=== PATIENT | male | born 1965 | race Caucasian/White ===

== ENCOUNTER 2021-02-18 23:53 | Inpatient (IN) | payer MEDICAID ==
[~2021-02-18] VITALS: Ht 167.6 cm; Wt 85.7 kg
[2021-02-19] MEDS ORDERED: ASPIRIN 81 MG TABLET CHEW PO ONE
--- NOTE | 2021-02-19 00:08 | NUR ---
VENECIA FROM [facility] FOR CHEST PAIN THAT DOES NOT RADIATE. PT C/O OF PRESSURE, TIGHTNESS, NAUSEA, SWEATING THAT STARTED AT 2000 TONIGHT. PT APPEARS TO HAVE CELLULITIS IN LEFT LEG, APPEARS RED AND SWOLLEN. PT DOES NOT APPEAR SWEATING OR IN ANY DISTRESS AT MOMENT. EKG AND TROP AND BANNER CAME OUT NEGATIVE ACCORDING TO EMS. PT GIVEN 324 ASA, 2 NITRO, 250 ML NS, AND VANCO TRAVEL WRITER ATTACHED TO CARD/SP02/BP MONITORS. VSS. NADN. BED IN LOW POSITION, RAILS ENGAGED, CALL LIGHT WITHIN REACH. [facility]CT[facility] PT LIVES IN [place].
[2021-02-19] MEDS ORDERED: FUROSEMIDE 40 MG/4 ML ONE (00:21)
[2021-02-19] MEDS ORDERED: CEFTRIAXONE 1,000 MG in DEXTROSE 5% 50 ML IVPB ONE (00:30)
[2021-02-19] MEDS ORDERED: ALBUTEROL SULFATE (00:35)
[2021-02-19] MEDS ORDERED: ROSU20TA29 PO (00:35)
[2021-02-19] MEDS ORDERED: ASPI-963 PO (00:35)
[2021-02-19] MEDS ORDERED: FURO20TA3 PO (00:35)
[2021-02-19] MEDS ORDERED: SPIR25TA5 PO (00:35)
[2021-02-19] MEDS ORDERED: LISI-170 PO (00:35)
[2021-02-19] MEDS ORDERED: METF500T17 PO (00:35)
--- NOTE | 2021-02-19 00:39 | NUR ---
TOLD DR MASON THAT TROPONIN WAS 1.150 VIA PHONE
[2021-02-19] MEDS ORDERED: BISACODYL 10 MG SUPP PR PRN (01:00)
[2021-02-19] MEDS ORDERED: ONDANSETRON ODT 4 MG PO PRN (01:00)
[2021-02-19] MEDS ORDERED: PROMETHAZINE 25 MG/ML, 1ML IM PRN (01:00)
[2021-02-19] MEDS ORDERED: POLYETHYLENE GLYCOL 17 GM PACKET PO PRN (01:00)
[2021-02-19] MEDS ORDERED: ALBUTEROL/IPRATROPIUM 2.5MG/0.5MG, 3 ML NPPB SCH (01:00)
[2021-02-19] MEDS ORDERED: morphine SULFATE 10 MG/ML, 1ML IVPush PRN (01:00)
[2021-02-19] MEDS ORDERED: hydrALAzine 20 MG/ML, 1ML IVPush PRN (01:00)
[2021-02-19] MEDS ORDERED: DOCUSATE 100 MG CAPSULE PO PRN (01:00)
[2021-02-19] MEDS ORDERED: OXYcodone IR 5MG TABLET PO PRN (01:00)
[2021-02-19] MEDS ORDERED: ONDANSETRON 2MG/ML, 2ML IVPush PRN (01:00)
[2021-02-19] MEDS ORDERED: ENOXAPARIN 40 MG/0.4 ML SQ SCH (01:00)
[2021-02-19 01:04] VITALS: BP 166/89
[2021-02-19] MEDS ORDERED: PHARMACOKINETIC MONITORING MC PRN (01:30)
[2021-02-19] MEDS: ERTAPENEM 1 GM in SODIUM CHLORIDE 0.9% 50 ML IV SCH (01:44)
[2021-02-19] MEDS ORDERED: HEPARIN 5,000 UNITS/ML, 1ML IV ONE (02:00)
[2021-02-19] MEDS ORDERED: HEPARIN 5,000 UNITS/ML, 1ML IV PRN (02:00)
[2021-02-19] MEDS: HEPARIN 25,000 UNITS/250ML PMX 250 ML IV PRN (03:17)
[2021-02-19] MEDS: methylPREDNISolone SOD SUCC 125 MG/2 ML IVPush SCH ×4 (03:20→20:51)
[2021-02-19] MEDS: CARVEDILOL 6.25 MG TABLET PO SCH ×2 (06:10→18:17)
[2021-02-19] MEDS: ASPIRIN 81 MG TABLET EC PO SCH (06:10)
[2021-02-19] MEDS: ALBUTEROL/IPRATROPIUM 2.5MG/0.5MG, 3 ML NPPB SCH ×3 (06:46→20:36)
[2021-02-19 07:51] VITALS: BP 103/84
[2021-02-19] MEDS: INSULIN LISPRO 100 UNITS/ML, PEN SQ-INSULIN SCH ×4 (08:31→21:44)
[2021-02-19] MEDS: LISINOPRIL 20 MG TABLET PO SCH (08:44)
[2021-02-19 08:46] LABS: CREATININE 1.23 mg/dL (0.7-1.3)
[2021-02-19] MEDS ORDERED: FUROSEMIDE 40 MG TABLET PO SCH (09:00)
[2021-02-19 10:36] VITALS: BP 93/67
[2021-02-19] MEDS: VANCOMYCIN 1,600 MG in SODIUM CHLORIDE 0.9% 250 ML IV SCH ×2 (10:57→23:14)
[2021-02-19 14:30] VITALS: BP 113/56
[2021-02-19] MEDS ORDERED: FUROSEMIDE 40 MG/4 ML IV ONE ×2 (15:00)
[2021-02-19] MEDS ORDERED: methylPREDNISolone SOD SUCC 125 MG/2 ML IVPush ONE (15:30)
[2021-02-19] MEDS ORDERED: DIPHENHYDRAMINE 50 MG/ML, 1ML IVPush ONE (15:30)
[2021-02-19] MEDS ORDERED: OMNIPAQUE 350 MG/ML, 100ML BOTTLE ONE (16:14)
[2021-02-19] MEDS ORDERED: NITR0.4T28 SL (18:14)
[2021-02-19 19:17] VITALS: BP 117/60
[2021-02-19] MEDS: ATORVASTATIN 20 MG TABLET PO SCH (20:51)
[2021-02-20] MEDS: ERTAPENEM 1 GM in SODIUM CHLORIDE 0.9% 50 ML IV SCH (01:35)
[2021-02-20 01:57] VITALS: BP 103/74
[2021-02-20] MEDS: ALBUTEROL/IPRATROPIUM 2.5MG/0.5MG, 3 ML NPPB SCH ×4 (03:12→19:29)
[2021-02-20] MEDS: methylPREDNISolone SOD SUCC 125 MG/2 ML IVPush SCH ×2 (03:27→07:57)
[2021-02-20 05:14] LABS: BASOPHILS % (AUTO) 0 % (0-1); EOSINOPHILS % (AUTO) 0 % (1-7); LYMPHOCYTES % (AUTO) 5 % (22-44); MEAN CORPUSCULAR HEMOGLOBIN 32.6 pg (27.5-34.5); MEAN CORPUSCULAR HGB CONC 34.1 g/dL (33.2-36.2); MEAN PLATELET VOLUME 9.6 fL (7.4-10.4); MONOCYTES % (AUTO) 7 % (2-9); NEUTROPHILS % (AUTO) 88 % (42-75); PLATELET COUNT 178 x10^3/uL (130-400); RED BLOOD COUNT 5.12 x10^6/uL (4.38-5.82); RED CELL DISTRIBUTION WIDTH 16.7 % (9.4-14.8)
[2021-02-20 05:22] LABS: ANION GAP 10 mmol/L (5-15); CALCIUM 8.9 mg/dL (8.5-10.1); CHLORIDE 98 mmol/L (98-107)
[2021-02-20 05:30] LABS: ALANINE AMINOTRANSFERASE 56 U/L (12-78); ALKALINE PHOSPHATASE 128 U/L (45-117); BILIRUBIN,TOTAL 1.5 mg/dL (0.2-1.0); CHOL/HDL RATIO 1.9; CHOLESTEROL, TOTAL 81 mg/dL (140-239); CREATININE 1.63 mg/dL (0.7-1.3); HDL CHOL % 53 % (26-37); HDL CHOLESTEROL (DIRECT) 43 mg/dL (40-60); LDL CHOLESTEROL,CALCULATED 28 mg/dL (54-169); TOTAL PROTEIN 7.2 g/dL (6.4-8.2); TRIGLYCERIDES 52 mg/dL (50-200); VLDL CHOLESTEROL 10 mg/dL (0-25)
[2021-02-20 05:31] LABS: LDL/HDL RATIO 0.7 (0.5-3.0)
[2021-02-20 06:10] VITALS: BP 105/78
[2021-02-20] MEDS: ASPIRIN 81 MG TABLET EC PO SCH (06:11)
[2021-02-20] MEDS: CARVEDILOL 6.25 MG TABLET PO SCH ×2 (06:11→17:22)
[2021-02-20 06:28] VITALS: BP 102/73
[2021-02-20] MEDS: INSULIN LISPRO 100 UNITS/ML, PEN SQ-INSULIN SCH ×4 (07:00→20:21)
[2021-02-20] MEDS: FUROSEMIDE 40 MG/4 ML IV SCH (07:57)
[2021-02-20] MEDS: LISINOPRIL 20 MG TABLET PO SCH (07:57)
[2021-02-20] MEDS: HEPARIN 25,000 UNITS/250ML PMX 250 ML IV PRN (08:09)
[2021-02-20] MEDS ORDERED: VANCOMYCIN PER PHARMACY MC PRN (09:00)
[2021-02-20] MEDS: VANCOMYCIN 1,600 MG in SODIUM CHLORIDE 0.9% 250 ML IV SCH (10:36)
[2021-02-20] MEDS: CEFTRIAXONE 2 GM in DEXTROSE 5% 50 ML IVPB SCH (11:57)
[2021-02-20 12:09] VITALS: BP 95/70
[2021-02-20 15:33] LABS: CREATININE 1.86 mg/dL (0.7-1.3)
[2021-02-20 15:34] LABS: VANCOMYCIN,RANDOM 32.2 mcg/mL
[2021-02-20] MEDS: LINEZOLID PMX 600MG/300ML 300 ML IV SCH (20:05)
[2021-02-20 20:10] VITALS: BP 125/82
[2021-02-20] MEDS: ATORVASTATIN 20 MG TABLET PO SCH (20:21)
[2021-02-21 01:08] VITALS: BP 95/72
[2021-02-21] MEDS: ASPIRIN 81 MG TABLET EC PO SCH (05:32)
[2021-02-21 06:35] VITALS: BP 90/72
[2021-02-21] MEDS: ALBUTEROL/IPRATROPIUM 2.5MG/0.5MG, 3 ML NPPB SCH ×3 (07:00→21:00)
[2021-02-21 08:00] LABS: MEAN CORPUSCULAR HEMOGLOBIN 31.9 pg (27.5-34.5); MEAN CORPUSCULAR HGB CONC 32.8 g/dL (33.2-36.2); MEAN PLATELET VOLUME 9.5 fL (7.4-10.4); PLATELET COUNT 189 x10^3/uL (130-400); RED BLOOD COUNT 4.79 x10^6/uL (4.38-5.82); RED CELL DISTRIBUTION WIDTH 16.1 % (9.4-14.8)
[2021-02-21 08:06] LABS: ALANINE AMINOTRANSFERASE 50 U/L (12-78); ANION GAP 7 mmol/L (5-15); CHLORIDE 93 mmol/L (98-107); CREATININE 1.81 mg/dL (0.7-1.3)
[2021-02-21 08:08] LABS: ALKALINE PHOSPHATASE 117 U/L (45-117); TOTAL PROTEIN 6.9 g/dL (6.4-8.2)
[2021-02-21 08:31] LABS: <PLATELET ESTIMATE> DECREASED; <PLT MORPHOLOGY> NORMAL PLT MORPH; <RBC MORPHOLOGY> NORMAL; BAND#(MANUAL) 0.56 x10^3/uL; BANDS%(MANUAL) 5 % (0-7); LYMPH#(MANUAL) 0.34 x10^3/uL (1-3.4); LYMPHS% (MANUAL) 3 % (22-44); MONOS#(MANUAL) 0.22 x10^3/uL (0.3-2.7); MONOS% (MANUAL) 2 % (2-9); SEG#(MANUAL) 10.08 x10^3/uL (1.8-6.8); SEGS% (MANUAL) 90 % (42-75)
[2021-02-21] MEDS: LINEZOLID PMX 600MG/300ML 300 ML IV SCH ×2 (08:37→20:10)
[2021-02-21] MEDS: FUROSEMIDE 40 MG/4 ML IV SCH (08:38)
[2021-02-21] MEDS: INSULIN LISPRO 100 UNITS/ML, PEN SQ-INSULIN SCH ×4 (08:39→20:20)
[2021-02-21] MEDS: LISINOPRIL 20 MG TABLET PO SCH (08:41)
[2021-02-21 08:42] VITALS: BP 116/85
[2021-02-21] MEDS: CARVEDILOL 6.25 MG TABLET PO SCH ×2 (09:25→20:10)
[2021-02-21] MEDS: ACETAMINOPHEN 325 MG TABLET PO PRN (09:25)
[2021-02-21] MEDS: APIXABAN 5 MG TABLET PO SCH ×2 (10:08→20:10)
[2021-02-21] MEDS: CEFTRIAXONE 2 GM in DEXTROSE 5% 50 ML IVPB SCH (12:09)
[2021-02-21 12:55] VITALS: BP 92/72
[2021-02-21 20:04] VITALS: BP 102/70
[2021-02-21] MEDS: ATORVASTATIN 20 MG TABLET PO SCH (20:10)
[2021-02-22 01:52] VITALS: BP 95/60
[2021-02-22] MEDS: ALBUTEROL/IPRATROPIUM 2.5MG/0.5MG, 3 ML NPPB SCH ×3 (02:03→14:41)
[2021-02-22 05:46] LABS: ANION GAP 10 mmol/L (5-15); CALCIUM 8.9 mg/dL (8.5-10.1); CHLORIDE 93 mmol/L (98-107)
[2021-02-22] MEDS: ASPIRIN 81 MG TABLET EC PO SCH (05:48)
[2021-02-22 05:49] LABS: CREATININE 1.55 mg/dL (0.7-1.3)
[2021-02-22 06:59] VITALS: BP 94/67
[2021-02-22] MEDS: INSULIN LISPRO 100 UNITS/ML, PEN SQ-INSULIN SCH ×3 (07:00→16:51)
[2021-02-22 08:22] VITALS: BP 94/67
[2021-02-22] MEDS: LINEZOLID PMX 600MG/300ML 300 ML IV SCH (08:24)
[2021-02-22] MEDS: FUROSEMIDE 40 MG/4 ML IV SCH (08:24)
[2021-02-22] MEDS: LISINOPRIL 20 MG TABLET PO SCH (08:25)
[2021-02-22] MEDS: CARVEDILOL 6.25 MG TABLET PO SCH (08:25)
[2021-02-22] MEDS: APIXABAN 5 MG TABLET PO SCH (08:25)
[2021-02-22] MEDS: ACETAMINOPHEN 325 MG TABLET PO PRN (09:44)
[2021-02-22 12:57] VITALS: BP 91/71
[2021-02-22] MEDS ORDERED: POLY17PO5 PO (13:42)
[2021-02-22] MEDS ORDERED: LISI5TAB7 PO (13:42)
[2021-02-22] MEDS ORDERED: SPIR25TA PO (13:42)
[2021-02-22] MEDS ORDERED: CEFD300C37 PO (13:42)
[2021-02-22] MEDS ORDERED: LINE600T15 PO (13:42)
[2021-02-22] MEDS ORDERED: APIX5TAB PO (13:42)
[2021-02-22] MEDS ORDERED: FURO40TA6 PO (13:42)
[2021-02-22] MEDS ORDERED: PRED5TAB PO (13:42)
[2021-02-22] MEDS ORDERED: ASPI81TA45 PO (13:42)
[2021-02-22] MEDS ORDERED: CARV3.1212 PO (13:42)
[2021-02-22] MEDS ORDERED: IPRA4AER INH (13:42)
== END 2021-02-22 17:45 | disposition home health service (06) | DRG 133 ==
LOC: ED 02-19 00:13 → EDIP 02-19 00:35 → 5SO 02-19 01:00
PROVIDERS: ADMIT Internal Medicine; ATTEND Internal Medicine
DX: J96.01 Acute respiratory failure with hypoxia (principal); I21.A1 Myocardial infarction type 2; N17.0 Acute kidney failure with tubular necrosis; I50.23 Acute on chronic systolic (congestive) heart failure; I42.8 Other cardiomyopathies; I48.91 Unspecified atrial fibrillation; L03.115 Cellulitis of right lower limb; R55 Syncope and collapse; I11.0 Hypertensive heart disease with heart failure; J44.1 Chronic obstructive pulmonary disease with (acute) exacerbation; E11.9 Type 2 diabetes mellitus without complications; I34.0 Nonrheumatic mitral (valve) insufficiency; F10.10 Alcohol abuse, uncomplicated; E78.5 Hyperlipidemia, unspecified; F15.90 Other stimulant use, unspecified, uncomplicated; F17.200 Nicotine dependence, unspecified, uncomplicated; L03.116 Cellulitis of left lower limb; Z20.822 Contact with and (suspected) exposure to COVID-19; Z66 Do not resuscitate; I25.2 Old myocardial infarction; Z79.01 Long term (current) use of anticoagulants; Z82.49 Family history of ischemic heart disease and other diseases of the circulatory system; Z95.5 Presence of coronary angioplasty implant and graft; Z71.6 Tobacco abuse counseling
CPT/HCPCS: 36415; 71045; 71275; 80048; 80053; 80061; 80202; 82565; 82962; 83036; 83735; 84100; 84145; 84443; 84484; 85025; 85520; 87040; 87070; 87186; 87205; 93005; 93970; 94640; C8929; G0378; J0696; J1335; J1644; J1650; J1940; J2020; J3370; Q9957; Q9967; U0005; J1200; J1815; J2930; J7050; J7512; U0003

== ENCOUNTER 2021-02-24 12:46 | Inpatient (IN) | payer MEDICAID ==
[~2021-02-24] VITALS: Ht 167.6 cm; Wt 82.4 kg
[~2021-02-24 12:46] MED LIST: ALBUTEROL SULFATE; APIX5TAB PO; ASPI-963 PO; ASPI81TA45 PO; CARV3.1212 PO; CEFD300C37 PO; FURO20TA3 PO; FURO40TA6 PO; IPRA4AER INH; LINE600T15 PO; LISI-170 PO; LISI5TAB7 PO; METF500T17 PO; NITR0.4T28 SL; POLY17PO5 PO; PRED5TAB PO; ROSU20TA29 PO; SPIR25TA PO; SPIR25TA5 PO
--- NOTE | 2021-02-24 13:08 | NUR ---
LUCIO YOUNG FROM [facility] FOR GI BLEED STARTING THIS AM. PT REPORTS RECENTLY BEING PLACED ON ELIQUIS. PT REPORTS MILD LOW BACK PAIN. GIVEN 1 UNIT OF BLOOD, 1L NS AND 80 MG PROTONIX. PT SITTING UP ON COMMODE AT THIS TIME. NAD NOTED. RN IN FOR ASSIST.
[2021-02-24] MEDS ORDERED: ATOR-2 PO (13:15)
[2021-02-24] MEDS ORDERED: CICL34.6 TD (13:15)
[2021-02-24] MEDS ORDERED: TIOT18CA INH (13:15)
--- NOTE | 2021-02-24 13:19 | NUR ---
PT BACK TO BED FROM COMMODE, BLOOD EVIDENT IN TOILET. PROVIDER ALERTED TO PT'S BLOOD LOSS.
[2021-02-24] MEDS ORDERED: SODIUM CHLORIDE 0.9% 1,000ML IVBOLUS ONE (13:30)
[2021-02-24] MEDS ORDERED: SODIUM CHLORIDE FLUSH 10ML SYR IVF ONE (13:30)
--- NOTE | 2021-02-24 13:35 | NUR ---
PROVIDER ALERTED TO BRUISING AROUND PT'S NAVEL. PT RESTING WITH EYES CLOSED. NAD NOTED AT THIS TIME.
[2021-02-24 13:38] LABS: BASOPHILS % (AUTO) 0 % (0-1); EOSINOPHILS % (AUTO) 1 % (1-7); LYMPHOCYTES % (AUTO) 8 % (22-44); MEAN CORPUSCULAR HEMOGLOBIN 31.4 pg (27.5-34.5); MEAN PLATELET VOLUME 9.4 fL (7.4-10.4); MONOCYTES % (AUTO) 15 % (2-9); NEUTROPHILS % (AUTO) 76 % (42-75); PLATELET COUNT 168 x10^3/uL (130-400); RED BLOOD COUNT 3.72 x10^6/uL (4.38-5.82); RED CELL DISTRIBUTION WIDTH 16.1 % (9.4-14.8)
--- NOTE | 2021-02-24 13:40 | NUR ---
REQUEST SENT TO PHARMACY FOR PROTONIX.
[2021-02-24] MEDS: PANTOPRAZOLE 80 MG in SODIUM CHLORIDE 0.9% 100 ML IV SCH (14:04)
--- NOTE | 2021-02-24 14:40 | NUR ---
PT BACK IN BED AFTER UP TO COMMODE. HOB TO LEVEL OF COMFORT. SIDE RAILS UP, CALL LIGHT IN REACH. IVF INFUSING PER EMAR.
--- NOTE | 2021-02-24 14:44 | NUR ---
first attempt to call report.
--- NOTE | 2021-02-24 15:09 | NUR ---
SECOND ATTEMPT TO CALL REPORT.
[2021-02-24] MEDS ORDERED: GOLYTELY 4,000ML ORAL.SOL PO ONE (15:30)
[2021-02-24] MEDS ORDERED: PHYTONADIONE 10 MG/ML, 1ML SQ ONE (15:30)
[2021-02-24 16:55] VITALS: BP 130/73
[2021-02-24] MEDS ORDERED: ACETAMINOPHEN 325 MG TABLET PO PRN (17:30)
[2021-02-24] MEDS ORDERED: PROMETHAZINE 25 MG/ML, 1ML IM PRN (17:30)
[2021-02-24] MEDS ORDERED: DOCUSATE 100 MG CAPSULE PO PRN (17:30)
[2021-02-24] MEDS ORDERED: morphine SULFATE 10 MG/ML, 1ML IVPush PRN (17:30)
[2021-02-24] MEDS ORDERED: ONDANSETRON 2MG/ML, 2ML IVPush PRN (17:30)
[2021-02-24] MEDS ORDERED: hydrALAzine 20 MG/ML, 1ML IVPush PRN (17:30)
[2021-02-24] MEDS ORDERED: ONDANSETRON ODT 4 MG PO PRN (17:30)
[2021-02-24] MEDS ORDERED: OXYcodone IR 5MG TABLET PO PRN (17:30)
[2021-02-24 19:20] VITALS: BP 104/71
[2021-02-24] MEDS: ATORVASTATIN 80 MG TABLET PO SCH (21:00)
[2021-02-24] MEDS: LINEZOLID 600 MG TABLET PO SCH (21:00)
[2021-02-24] MEDS: CEFDINIR 300 MG CAPSULE PO SCH (21:00)
[2021-02-24] MEDS: FUROSEMIDE 40 MG TABLET PO SCH (21:04)
[2021-02-24] MEDS ORDERED: IPRATROPIUM 0.5 MG/2.5 ML INHA HHN SCH (22:00)
[2021-02-24] MEDS ORDERED: ALBUTEROL SULFATE 2.5 MG/3 ML HHN SCH (22:00)
[2021-02-25] MEDS ORDERED: PANTOPRAZOLE 80 MG in SODIUM CHLORIDE 0.9% 100 ML IV SCH
[2021-02-25] MEDS: PANTOPRAZOLE 80 MG in SODIUM CHLORIDE 0.9% 100 ML IV SCH ×3 (00:44→20:17)
[2021-02-25 00:57] VITALS: BP 100/75
[2021-02-25] MEDS: ALBUTEROL/IPRATROPIUM 2.5MG/0.5MG, 3 ML NPPB SCH ×4 (04:30→20:41)
[2021-02-25 05:22] LABS: INTERNATIONAL NORMALIZED RATIO 1.27 (0.93-1.1); PROTHROMBIN TIME 13.5 Seconds (9.6-11.5)
[2021-02-25 05:30] LABS: CHLORIDE 106 mmol/L (98-107)
[2021-02-25 05:40] LABS: ALANINE AMINOTRANSFERASE 56 U/L (12-78); ALBUMIN 2.6 g/dL (3.4-5.0); ALKALINE PHOSPHATASE 85 U/L (45-117); ANION GAP 7 mmol/L (5-15); BILIRUBIN,TOTAL 2.1 mg/dL (0.2-1.0); CALCIUM 8.4 mg/dL (8.5-10.1); CREATININE 1.09 mg/dL (0.7-1.3); TOTAL PROTEIN 5.4 g/dL (6.4-8.2)
[2021-02-25 06:49] VITALS: BP 106/73
[2021-02-25] MEDS ORDERED: PROPOFOL 100 ML ONE (07:29)
[2021-02-25] MEDS ORDERED: ACETAMINOPHEN 325 MG TABLET PO PRN (08:30)
[2021-02-25] MEDS ORDERED: LORazepam 2 MG/ML, 1ML IVPush PRN (08:30)
[2021-02-25] MEDS ORDERED: PROMETHAZINE 25 MG SUPP PR PRN (08:30)
[2021-02-25] MEDS ORDERED: FENTANYL PF 100 MCG/2ML IV PRN (08:30)
[2021-02-25] MEDS ORDERED: PROMETHAZINE 25 MG/ML, 1ML IVPush PRN (08:30)
[2021-02-25] MEDS ORDERED: OXYcodone 5 MG/5 ML ORAL.SOL UDC PO PRN (08:30)
[2021-02-25] MEDS ORDERED: ONDANSETRON 2MG/ML, 2ML IVPush PRN (08:30)
[2021-02-25] MEDS: LINEZOLID 600 MG TABLET PO SCH ×2 (10:33→20:02)
[2021-02-25] MEDS: CEFDINIR 300 MG CAPSULE PO SCH ×2 (10:33→20:02)
[2021-02-25] MEDS: FUROSEMIDE 40 MG TABLET PO SCH ×2 (10:33→20:02)
[2021-02-25 12:39] VITALS: BP 97/68
[2021-02-25 19:02] VITALS: BP 91/60
[2021-02-25] MEDS: ATORVASTATIN 80 MG TABLET PO SCH (20:02)
[2021-02-26 01:22] VITALS: BP 91/62
[2021-02-26] MEDS: ALBUTEROL/IPRATROPIUM 2.5MG/0.5MG, 3 ML NPPB SCH ×3 (03:00→15:04)
[2021-02-26 06:09] LABS: BASOPHILS % (AUTO) 0 % (0-1); EOSINOPHILS % (AUTO) 5 % (1-7); LYMPHOCYTES % (AUTO) 9 % (22-44); MEAN CORPUSCULAR HEMOGLOBIN 31.4 pg (27.5-34.5); MEAN CORPUSCULAR HGB CONC 33.3 g/dL (33.2-36.2); MEAN PLATELET VOLUME 9.3 fL (7.4-10.4); MONOCYTES % (AUTO) 11 % (2-9); NEUTROPHILS % (AUTO) 75 % (42-75); PLATELET COUNT 164 x10^3/uL (130-400); RED BLOOD COUNT 2.97 x10^6/uL (4.38-5.82); RED CELL DISTRIBUTION WIDTH 15.6 % (9.4-14.8)
[2021-02-26 07:29] VITALS: BP 100/64
[2021-02-26] MEDS: PANTOPRAZOLE 80 MG in SODIUM CHLORIDE 0.9% 100 ML IV SCH (08:39)
[2021-02-26] MEDS: FUROSEMIDE 40 MG TABLET PO SCH (08:39)
[2021-02-26] MEDS: LINEZOLID 600 MG TABLET PO SCH (08:39)
[2021-02-26] MEDS: CEFDINIR 300 MG CAPSULE PO SCH (08:39)
[2021-02-26] MEDS ORDERED: PANT40TA6 PO (12:19)
[2021-02-26 12:51] VITALS: BP 99/61
== END 2021-02-26 17:09 | disposition home or self-care (01) | DRG 241 ==
LOC: ED 13:28 → EDIP 14:12 → 3N 15:14
PROVIDERS: ADMIT Internal Medicine; ATTEND Family Medicine
PROC: 0DJD8ZZ Inspection of Lower Intestinal Tract, Via Natural or Artificial Opening Endoscopic (ICD-10-PCS; 2021-02-25)
PROC: 0DJ08ZZ Inspection of Upper Intestinal Tract, Via Natural or Artificial Opening Endoscopic (ICD-10-PCS; principal; 2021-02-25 07:30)
DX: K27.4 Chronic or unspecified peptic ulcer, site unspecified, with hemorrhage (principal); D68.69 Other thrombophilia; I42.8 Other cardiomyopathies; I11.0 Hypertensive heart disease with heart failure; I50.22 Chronic systolic (congestive) heart failure; I51.3 Intracardiac thrombosis, not elsewhere classified; I95.9 Hypotension, unspecified; K44.9 Diaphragmatic hernia without obstruction or gangrene; K21.00 Gastro-esophageal reflux disease with esophagitis, without bleeding; Z72.89 Other problems related to lifestyle; J44.9 Chronic obstructive pulmonary disease, unspecified; Z88.0 Allergy status to penicillin; Z88.8 Allergy status to other drugs, medicaments and biological substances; Z91.041 Radiographic dye allergy status; D50.0 Iron deficiency anemia secondary to blood loss (chronic); E11.9 Type 2 diabetes mellitus without complications; E78.5 Hyperlipidemia, unspecified; F12.90 Cannabis use, unspecified, uncomplicated; I25.10 Atherosclerotic heart disease of native coronary artery without angina pectoris; I25.2 Old myocardial infarction; Z82.49 Family history of ischemic heart disease and other diseases of the circulatory system; Z66 Do not resuscitate; Z20.822 Contact with and (suspected) exposure to COVID-19; L03.119 Cellulitis of unspecified part of limb; K29.80 Duodenitis without bleeding; K57.90 Diverticulosis of intestine, part unspecified, without perforation or abscess without bleeding
CPT/HCPCS: 36415; 80053; 83735; 84100; 85014; 85018; 85025; 85610; 86850; 86900; 87635; 93005; 94640; 99285; G0378; J2704; J3430; J7613; J7644; C9113; J2270; J7030